=== PATIENT | male | born 1995 | race Caucasian/White ===

== ENCOUNTER 2023-11-01 11:46 | Emergency (ER) | payer OTHER, SELFPAY ==
[2023-11-01 11:49] VITALS: BP 144/82; PULSE 74; RESP 18; TEMP 36.6; O2SAT 98
[2023-11-01 12:24] VITALS: BP 124/67; PULSE 73; O2SAT 98
--- NOTE | 2023-11-01 12:29 | CT_ITS ---
WS: [id number] CT ABDOMEN AND PELVIS WITH CONTRAST HISTORY: abd pain TECHNIQUE: Imaging performed of the abdomen and pelvis with IV contrast. Single phase imaging of the abdomen. Coronal and sagittal reformats are submitted. All CT scans at [facility] use at [address] one of these dose optimization techniques: automated exposure control; mA and/or kV adjustment per patient size (includes targeted exams where dose is matched to clinical indication); or iterative re construction. IV CONTRAST: Omnipaque 350; 100 mL IV. Oral contrast: No DLP: 679.01 mGy.cm COMPARISON: 02/15/2018 Lower thorax: Minimal dependent changes at the lung bases. Heart is normal size. No hiatal hernia. Liver/biliary system: Normal size with no intrahepatic dilatation. Gallbladder: Normal. No gallstones or wall thickening. No pericholecystic fluid. Pancreas: Normal size pancreas and pancreatic duct. No adjacent inflammation. Spleen: Normal size spleen. No mass or infarct. Adrenal glands: Normal. Right kidney: Normal. Left kidney: Normal. Aorta: Normal. Lymphadenopathy: None. Free fluid: None. GI tract: Unremarkable. Abdominal wall: Unremarkable abdominal wall. No hernia. Pelvis: No free fluid or adenopathy within the pelvis. Bones: Unremarkable. IMPRESSION: 1. Normal CT abdomen and pelvis. 2. No renal obstruction. No ascites. No colitis. Normal appendix.
--- NOTE | 2023-11-01 12:38 | ED_ITS ---
HPI - Abdominal Pain 2 General: Chief Complaint: Abdominal Pain Stated Complaint: fever Time Seen by Provider: 11/01/23 12:07 Source: patient Mode of arrival: ambulatory Limitations: no limitations History of Present Illness: 28-year-old male states he has been havi ng diffuse abdominal pain since Saturday. States he is seen at [place] diagnosed with colitis started on Cipro Flagyl states his pain has persisted states its much worse with eating states he tried to eat today and just felt full and nauseous. Denies any fevers denies any diarrhea. Associated Symptoms: Denies chills, diarrhea, fever(s) and vomiting Review of Systems 2 Const: Denies: fever(s), chills, body aches or change in appetite ENMT: Denies: throat pain or dental pain Card: Denies: chest pain Resp: Denies: dyspnea GI: Reports: abdominal pain; Denies: vomiting or diarrhea Musc: Denies: neck pain or back pain Skin/Breast: Denies: rash Neuro: Denies: headache(s) PFSH ED 2 PFSH: Social History Smoking and tobacco/nicotine status: never used tobacco/nicotine Physical Exam 2 Const: COMMON NORMALS: no acute distress, patient oriented x3 and healthy appearing HENMT: COMMON NORMALS: normocephalic and atraumatic HEAD & SCALP: n ormocephalic and atraumatic Neck/C-Spine: COMMON NORMALS: full ROM and supple Chest: COMMONS NORMALS: normal inspection of the chest Resp: COMMON NORMALS: normal respiratory effort Cardio: COMMON NORMALS: regular rate, regular rhythm and No murmurs present (Cardio) RATE: regular rate RHYTHM: regular rhythm GI: COMMON NORMALS: Normal to inspection, nondistended, normoactive bowel sounds present, Soft to palpation, non-tender and no masses PALPATION: Yes Soft to palpation Extremity: COMMON NORMALS: normal to inspection and full ROM Neuro: COMMON NORMALS: patient oriented x3, moves all extremities and no focal motor deficits Psych: COMMON NORMALS: mental status grossly normal, Normal thought process present and cooperative THOUGHT PROCESS: Normal thought process present Skin: COMMON NORMALS: no rashes or lesions noted and no wounds GENERAL SKIN EXAM: no rashes or lesions noted Course 2 Vital Signs: Vital signs: Vital Signs Temperature 97.9 F 11/01/23 11:49 Pulse Rate 73 11/01/23 12:24 Respiratory Rate 18 11/01/23 11:49 Blood Pressure 124/67 11/01/23 12:24 Pulse Oximetry 98 11/01/23 12:24 Oxygen Delivery Me thod Room Air 11/01/23 11:49 MDM - Abdominal Pain Medical Decision Making Patient presents here with abdominal pain blood work CT here are all normal he is continue his Cipro Flagyl for his colitis we will get him follow-up with general surgery as he may need a colonoscopy and a upper GI in the future. Will start him on Protonix he is return if worsening he understands agrees to plan. Medical Records I reviewed the patient's medical records. Lab Data I reviewed the patient's lab results. 11/01/23 12:32 11/01/23 12:32 Labs/Radiology: Laboratory Results WBC 3.86 10^3/uL (3.29-11.43) 11/01/23 12:32 RBC 4.64 10^6/uL (3.85-5.65) 11/01/23 12:32 Hgb 13.70 g/dL (11.27-16.99) 11/01/23 12:32 Hct 40.9 % (37-53) 11/01/23 12:32 MCV 88.1 fl (82-101) 11/01/23 12:32 MCH 29.5 pg (27-33) 11/01/23 12:32 MCHC 33.5 g/dL (30-55) 11/01/23 12:32 RDW 11.9 % (12.1-15.1) L 11/01/23 12:32 Plt Count 160 10^3/cmm (157-399) 11/01/23 12:32 MPV 10.1 fL (7.4-10.4) 11/01/23 12:32 Neut % (Auto) 44.3 % 11/01/23 12:32 Lymph % (Auto) 39.6 % 11/01/23 12:32 [place] % (Auto) 15.5 % 11/01/23 12:32 Eos % (Auto) 0.0 % 11/01/23 12:32 Baso % (Auto) 0.3 % 11/01/23 12:32 Neut # (Auto) 1.71 10^3/uL (1.8-7.7) L 11/01/23 12:32 Lymph # (Auto) 1.5 10^3/uL (0.8-4.8) 11/01/23 12:32 [place] # (Auto) 0.6 10^3/uL (0.2-0.9) 11/01/23 12:32 Eos # (Auto) 0.0 10^3/uL (0.0-0.8) 11/01/23 12:32 Baso # (Auto) 0.0 10^3/uL (0.0-0.1) 11/01/23 12:32 Nucleated RBC % (auto) 0 % 11/01/23 12: Nucleated RBCs # 0.0 /100WBC 11/01/23 12:32 Sodium 137 mmol/L (136-145) 11/01/23 12:32 Potassium 4.3 mmol/L (3.5-5.1) 11/01/23 12:32 Chloride 98 mmol/L (98-107) 11/01/23 12:32 Carbon Dioxide 30 mmol/L (22-29) H 11/01/23 12:32 Anion Gap 13.3 (5-19) 11/01/23 12:32 BUN 8 mg/dL (6-20) 11/01/23 12:32 Creatinine 1.0 mg/dL (0.7-1.2) 11/01/23 12:32 GFR Calculation 87.7 mL/min (90-130) L 11/01/23 12:32 Glucose 81 mg/dL (65-115) 11/01/23 12:32 Calculated Osmolality 281 mOsm/kg (285-295) L 11/01/23 12:32 Calcium 8.6 mg/dL (8.5-10.5) 11/01/23 12:32 Total Bilirubin 0.6 mg/dL (0.15-1.2) 11/01/23 12:32 AST 23 U/L (0-40) 11/01/23 12:32 ALT 23 U/L (0-41) 11/01/23 12:32 Alkaline Phosphatase 46 U/L (40-130) 11/01/23 12:32 Total Protein 7.1 g/dL (6.6-8.7) 11/01/23 12:32 Albumin 4.4 g/dL (3.5-5.2) 11/01/23 12:32 Globulin 2.7 g/dL (1.3-4.6) 11/01/23 12:32 Lipase 31 U/L (13-60) 11/01/23 12:32 Urine Color Yellow (Yellow) 11/01/23 12:40 Urine Appearance Clear (CLEAR) 11/01/23 12:40 Urine pH 5 (5-7) 11/01/23 12:40 Ur Specific [place] 1.015 (1.005-1.030) 11/01/23 12:40 Urine Protein Neg (Negative) 11/01/23 12:40 Urine Glucose (UA) Norm (Normal) 11/01/23 12:40 Urine Ketones Negative (Negative) 11/01/23 12:40 Urine Blood Neg (Negative) 11/01/23 12:40 Urine Nitrate Negative (Negative) 11/01/23 12:40 Urine Bilirubin Neg (Negative) 11/01/23 12:40 Urine Urobilinogen Norm mg/dL (Negative) 11/01/23 12:40 Ur Leukocyte Esterase Negative (Negative) 11/01/23 12:40 All radiology interpretation(s) finalized by discharge Discharge Plan Discharge Patient Disposition: Home Clinical Impression: Abdominal pain Condition: Stable Prescriptions: New Protonix 40 mg tablet,delayed release (DR/EC) 40 mg PO DAILY Qty: 60 0RF No Action metronidazole 500 mg tablet 500 mg PO TID Rx Instructions: for 5 days (rx filled 10/30/23) ciprofloxacin HCl 500 mg tablet 500 mg PO BID Rx Instructions: for 5 days (rx filled 10/30/23) Tylenol Ex Str Rapid Release 500 mg Tablet 1,000 mg PO Q6H PRN (Reason: Pain) neomycin-polymyxin B-dexameth 3.5mg/mL-10,000 unit/mL-0.1 % drops,suspension See Rx Instructions .ROUTE .COMPLEX Rx Instructions: SHAKE LIQUID AND INSTILL 1 DROP IN LEFT EYE FOUR TIMES DAILY ondansetron 4 mg tablet,disintegrating 4 mg PO Q8H PRN (Reason: Nausea And Vomiting) Discharge Orders: Discharge ED (Routine); Ordered 11/01/23 Ordered By: Niurka Brown Referrals: Cody Boyd DO [Physician] - 1-3 days Rajeev Serrato FNP [Primary Care Provider] - Discharge Diet: Advance as tolerated Discharge Activity: Resume usual activity Patient Instructions: Abdominal Pain (ED) Coding Level of Care Code ED Overlay Plastician for Pippa Peck
[2023-11-01 12:40] LABS: Basophils % 0.3 %; Hematocrit 40.9 % (37-53); Lymphocytes # 1.5 10^3/uL (0.8-4.8); Lymphocytes % 39.6 %; Mean Corpuscular HGB Conc 33.5 g/dL (30-55); Mean Corpuscular Hemoglobin 29.5 pg (27-33); Mean Corpuscular Volume 88.1 fl (82-101); Mean Platelet Volume 10.1 fL (7.4-10.4); Monocytes # 0.6 10^3/uL (0.2-0.9); Monocytes % 15.5 %; Neutrophils # 1.71 10^3/uL (1.8-7.7); Neutrophils % 44.3 %; Nucleated Red Blood Cells % 0 %; Platelet Count 160 10^3/cmm (157-399); Red Blood Count 4.64 10^6/uL (3.85-5.65); Red Cell Distribution Width 11.9 % (12.1-15.1); White Blood Count 3.86 10^3/uL (3.29-11.43)
[2023-11-01] MEDS: ondansetron 2 mg/ML SDV 2 mL 4 MG IVP (12:40)
[2023-11-01] MEDS: sodium chloride 0.9% 1,000 ML 999 ML IV (12:40)
[2023-11-01 12:49] LABS: Add Urine Microscopic? NO; Charge for UA Resulting for Rev
[2023-11-01] MEDS: iohexol 350 mg/mL 500 mL Btl (per mL) IV (12:49)
[2023-11-01 12:52] LABS: Bilirubin Urine Neg (Negative); Blood Urine Neg (Negative); Glucose Urine UA Norm (Normal); Ketones Urine Negative (Negative); Leukocyte Esterase Urine Negative (Negative); Nitrate Urine Negative (Negative); Protein Urine Neg (Negative); Specific Gravity, Urine 1.015 (1.005-1.030); Urine Appearance Clear (CLEAR); Urine Color Yellow (Yellow); Urobilinogen Urine Norm (Negative); pH Urine 5 (5-7)
[2023-11-01 12:56] LABS: Alanine Aminotransferase 23 U/L (0-41); Albumin Level 4.4 g/dL (3.5-5.2); Alkaline Phosphatase 46 U/L (40-130); Aspartate Amino Transferase 23 U/L (0-40); Blood Urea Nitrogen 8 mg/dL (6-20); Calcium 8.6 mg/dL (8.5-10.5); Carbon Dioxide 30 mmol/L (22-29); Chloride 98 mmol/L (98-107); Globulin 2.7 g/dL (1.3-4.6); Glomerular Filtration Rate 87.7 mL/min (90-130); Glucose 81 mg/dL (65-115); Lipase 31 U/L (13-60); Osmolality Calculated 281 mOsm/kg (285-295); Sodium 137 mmol/L (136-145); Total Bilirubin 0.6 mg/dL (0.15-1.2); Total Protein 7.1 g/dL (6.6-8.7)
[2023-11-01 13:03] LABS: Anion Gap 13.3 (5-19); Potassium 4.3 mmol/L (3.5-5.1)
[2023-11-01 13:49] VITALS: BP 129/67; PULSE 75; RESP 14; O2SAT 98
--- NOTE | 2023-11-01 14:16 | DCPLANNER ---
A message was sent to general surgery on 11/01/23 at 1416. [employer] to contact patient.
== END 2023-11-01 13:50 | disposition home or self-care (01) ==
PROVIDERS: Emergency Provider Emergency Medicine; PCP Nurse Practitioner Family
DX: R10.9 Unspecified abdominal pain (principal)
CPT/HCPCS: 74177; 80053; 81003; 83690; 85025; 96374; 99285; J2405; J7030; Q9967

== ENCOUNTER 2023-11-18 06:01 | Outpatient (CLI) | payer OTHER, SELFPAY ==
--- NOTE | 2023-11-18 06:15 | US_ITS ---
WS: [id number] RIGHT UPPER QUADRANT ULTRASOUND HISTORY: abdominal pain COMPARISON: None available. Liver: 14.2 cm in length. Normal size liver and echogenicity. No bile duct dilatation or mass. Portal Vein: Normal hepatopetal flow with monophasic waveform. Gallbladder: Normally distended gallbladder with no stones or wall thickening. CBD: 0.3 cm Pancreas: Normal size and echogenicity. Right kidney: 11.9 cm in length. Normal size and echogenicity. No hydronephrosis or mass. Aorta and IVC: Unremarkable abdominal aorta and IVC. No ascites. IMPRESSION: Normal right upper quadrant ultrasound.
== END 2023-11-18 06:02 | disposition home or self-care (01) ==
LOC: RAD 06:01
PROVIDERS: PCP Nurse Practitioner Family; Visit Provider Surgery
DX: R10.9 Unspecified abdominal pain (principal)
CPT/HCPCS: 76705

== ENCOUNTER 2024-01-08 08:43 | Day surgery (SDC) | payer OTHER, SELFPAY ==
[2024-01-08 08:55] VITALS: BP 142/77; PULSE 65; RESP 16; TEMP 36.4; O2SAT 98; BMI 28.7
[2024-01-08] MEDS: sodium chloride 0.9% 1,000 ML 30 ML IV (09:00)
--- NOTE | 2024-01-08 09:04 | ANES.PREANE2 ---
Pre-Anesthetic Assessment Height/Weight: Height 1.91 m Weight 104.326 kg Temp Pulse Resp BP Pulse Ox O2 Del Method 97.5 F L 65 16 142/77 98 Room Air 01/08/24 08:55 01/08/24 08:55 01/08/24 08:55 01/08/24 08:55 01/08/24 08:55 01/08/24 08:55 Operation Date: 01/08/24 09:30 Proposed Procedures p EGD 37601, R10.11(Not Applicable) - Cody Boyd DO Familial anesthetic complications: None Was Beta Lisa taken within 24 hours: N/A Was Clonidine taken within 24 hours: N/A Last intake: Intake Last Liquid Date 01/07/24 Last Liquid Time 21:00 Last Solid Date 01/07/24 Last Solid Time 21:00 Social No alcohol and No tobacco Exam alert, oriented x 3, clear to auscultation bilaterally and regular rate & rhythm Airway Mallampati: Class I Dentition: chipped Anesthetic Plan ASA status: 1 Anesthesia: MAC Risk of > 500 ml blood loss (7ml/kg in children): No Medications/Allergies Home Medications Medication Instructions Recorded Confirmed Last Taken Type acetaminophen 500 mg tablet 1,000 mg PO Q6H PRN Pain 11/01/23 01/06/24 1 Week Ago History ~01/01/24 ibuprofen 200 mg tablet 200 mg PO Q6H PRN Pain 12/30/23 01/06/24 1 Week Ago History ~01/01/24 Allergies Allergy/AdvReac Type Severity Reaction Status Date / Time No Known Allergies Allergy Verified 11/01/23 11:55 PFSH Anesthesia Family History Father Colon cancer Mother Kidney failure Social History Smoking and tobacco/nicotine status: current every day tobacco/nicotine user (chewing tobacco) smokeless tobacco Smokeless tobacco user: chewing tobacco Alcohol intake: never Data Anesthesia Cardiac Studies: No Data to Display
--- NOTE | 2024-01-08 09:27 | W.PM.OPSUD ---
Surgery/Procedure H&P Update DATE OF PROCEDURE: January 08, 2024 DATE H&P PERFORMED: 12/30/23 H&P UPDATE INFORMATION: I have reviewed H&P completed within last 30 days, I have examined patient prior to procedure and No changes to prior documentation PLANNED PROCEDURE: Operation Date: 01/08/24 09:30 Proposed Procedures p EGD [id number], R10.11(Not Applicable) - Cody Boyd, DO
[2024-01-08 09:43] VITALS: BP 118/69; PULSE 59; RESP 14; TEMP 36.4; O2SAT 98
[2024-01-08 09:50] VITALS: BP 124/75; PULSE 60; RESP 14; O2SAT 98
[2024-01-08 10:00] VITALS: BP 136/70; PULSE 62; RESP 18; O2SAT 99
--- NOTE | 2024-01-08 10:15 | ANE.PACU2 ---
Inpatient post-anesthesia follow up: Airway intact: Yes Vital signs: Temperature 97.5 F Pulse Rate 62 Respiratory Rate 18 Blood Pressure 136/70 Pulse Oximetry 99 Oxygen Delivery Me thod Room Air Oxygen Flow Rate Fraction of Inspir ed Oxygen Hydration adequate: Yes Nausea and vomiting: No Pain level: 1 Mental status: Baseline
== END 2024-01-08 10:16 | disposition home or self-care (01) ==
PROVIDERS: PCP Nurse Practitioner Family; Visit Provider Surgery
PROC: 0DJ08ZZ Inspection of Upper Intestinal Tract, Via Natural or Artificial Opening Endoscopic (ICD-10-PCS; CPT 43235; principal; 2024-01-08 09:30)
DX: R10.11 Right upper quadrant pain (principal); K29.70 Gastritis, unspecified, without bleeding; F17.220 Nicotine dependence, chewing tobacco, uncomplicated; R11.2 Nausea with vomiting, unspecified; R19.7 Diarrhea, unspecified; Z80.0 Family history of malignant neoplasm of digestive organs
CPT/HCPCS: 43239; 88305; J2704; J7030